=== PATIENT | female | born 1980 | race Caucasian/White ===

== ENCOUNTER 2017-12-08 16:14 | Outpatient (CLI) | END 2017-12-08 23:35 | disposition home or self-care (01) ==

== ENCOUNTER 2017-12-11 17:02 | Outpatient (CLI) | END 2017-12-11 19:10 | disposition home or self-care (01) ==

== ENCOUNTER 2017-12-20 17:15 | Inpatient (IN) | END 2017-12-23 21:25 | disposition home or self-care (01) | DRG 775 ==

== ENCOUNTER 2018-03-12 06:51 | Day surgery (SDC) | END 2018-03-12 22:10 | disposition home or self-care (01) ==